=== PATIENT | female | born 1950 | race Caucasian/White ===

== ENCOUNTER 2019-02-18 09:03 | Day surgery (SDC) | payer MEDICARE, MEDICAID ==
[~2019-02-18] VITALS: Ht 157.5 cm; Wt 63.6 kg
== END 2019-02-18 12:45 | disposition home or self-care (01) ==
LOC: CACL 09:03
PROVIDERS: ATTEND Internal Medicine Cardiovascular Disease
DX: I27.0 Primary pulmonary hypertension (principal); E11.9 Type 2 diabetes mellitus without complications; J44.9 Chronic obstructive pulmonary disease, unspecified; Z87.891 Personal history of nicotine dependence; Z88.1 Allergy status to other antibiotic agents; Z88.2 Allergy status to sulfonamides; Z88.5 Allergy status to narcotic agent
CPT/HCPCS: 93451; 99156; 99157; C1769; C1894; J0153; J1200; J2250; J3010

== ENCOUNTER 2020-01-18 11:38 | Day surgery (SDC) | payer MEDICARE, MEDICAID ==
[~2020-01-18] VITALS: Ht 156.2 cm; Wt 62.7 kg
[~2020-01-18 11:38] MED LIST: ALBU18HF INH; ASPI-496 PO; ATOR40TA78 PO; CETI10TA18 PO; CITA20TA6 PO; DICL100G25 TP; DOCU-131 PO; FLUT1BLS INH; FURO20TA3 PO; HYDR-3246 PO; IPRA3AMP30 NEB; LOSA100T14 PO; METF500T17 PO; METO50TA82 PO; MULT-717 PO; ONDA4TAB13 SL; POLY17PO5 PO; POTA20TA89 PO; PROPOFOL 10 MG/ML, 20ML ONE; RABE20TA26 PO; ROFL500T PO; SPIR25TA5 PO; TIOT18CA INH
[2020-01-18 12:22] VITALS: BP 130/57
[2020-01-18] MEDS ORDERED: DIPHENHYDRAMINE 50 MG/ML, 1ML IVPush ONE (12:30)
[2020-01-18] MEDS ORDERED: methylPREDNISolone SOD SUCC 125 MG/2 ML IVPush ONE (12:30)
[2020-01-18] MEDS ORDERED: SODIUM CHLORIDE 0.9% 1,000 ML IV SCH ×2 (12:30→16:32)
[2020-01-18] MEDS ORDERED: MAGN400T36 PO (12:34)
[2020-01-18] MEDS ORDERED: IRON1TAB60 PO (12:34)
[2020-01-18] MEDS ORDERED: SILD20TA PO (12:35)
[2020-01-18] MEDS ORDERED: AMBR10TA3 PO (12:35)
[2020-01-18] MEDS ORDERED: LIDOCAINE 2%, 20ML ONE (15:24)
[2020-01-18] MEDS ORDERED: FUROSEMIDE 40 MG/4 ML ONE (16:48)
[2020-01-18] MEDS ORDERED: FUROSEMIDE 40 MG/4 ML IV ONE (17:00)
[2020-01-18] MEDS ORDERED: FENTANYL PF 100 MCG/2ML ONE (22:13)
[2020-01-18] MEDS ORDERED: MIDAZOLAM 1 MG/ML, 5ML ONE (22:13)
[2020-01-18] MEDS ORDERED: HEPARIN 1,000 UNITS/ML, 10ML ONE (22:13)
[2020-01-18] MEDS ORDERED: LIDOCAINE-MPF 1%, 5ML ONE (22:14)
== END 2020-01-18 18:40 | disposition home or self-care (01) ==
LOC: CACL 11:38
PROVIDERS: ATTEND Internal Medicine Cardiovascular Disease
DX: I34.0 Nonrheumatic mitral (valve) insufficiency (principal); Z11.59 Encounter for screening for other viral diseases; I27.20 Pulmonary hypertension, unspecified; I11.9 Hypertensive heart disease without heart failure; J44.9 Chronic obstructive pulmonary disease, unspecified; E78.5 Hyperlipidemia, unspecified; E11.9 Type 2 diabetes mellitus without complications; K21.9 Gastro-esophageal reflux disease without esophagitis; Z79.899 Other long term (current) drug therapy; Z88.5 Allergy status to narcotic agent; Z88.2 Allergy status to sulfonamides; Z88.8 Allergy status to other drugs, medicaments and biological substances; Z88.1 Allergy status to other antibiotic agents; Z98.890 Other specified postprocedural states
CPT/HCPCS: 36415; 87635; 93312; 93321; 93325; 93460; 99156; 99157; C1760; C1894; J1940; J2250; J2704; J3010; Q9967; J1644

== ENCOUNTER 2020-02-01 11:12 | Outpatient (CLI) | payer MEDICARE, MEDICAID ==
[~2020-02-01 11:12] MED LIST changes: +AMBR10TA3 PO; +IRON1TAB60 PO; +MAGN400T36 PO; -PROPOFOL 10 MG/ML, 20ML ONE; +SILD20TA PO
== END 2020-02-01 23:59 | disposition home or self-care (01) ==
LOC: CVU 11:12
PROVIDERS: ATTEND Internal Medicine Cardiovascular Disease
DX: I08.8 Other rheumatic multiple valve diseases (principal); I11.9 Hypertensive heart disease without heart failure
CPT/HCPCS: 93308

== ENCOUNTER → 2021-02-20 | Outpatient (CLI) | payer MEDICARE, MEDICAID ==
[~2021-02-20] MED LIST changes: -HYDR-3246 PO; +HYDR-3248 PO; -RABE20TA26 PO; +RABE20TA29 PO
== END | disposition home or self-care (01) ==
LOC: CVU 11:01
PROVIDERS: ATTEND Internal Medicine Cardiovascular Disease
DX: I08.0 Rheumatic disorders of both mitral and aortic valves (principal); I11.9 Hypertensive heart disease without heart failure; E78.5 Hyperlipidemia, unspecified
CPT/HCPCS: 93306; 93356